=== PATIENT | female | born 1955 | race Caucasian/White ===

== ENCOUNTER → 2016-09-27 | Outpatient (CLI) | payer BC ==
--- NOTE | 2016-09-27 10:53 | KCIC ---
Complete lumbar spine INDICATION: Chronic low back pain COMPARISON: None FINDINGS: No compression fracture or malalignment. There is mild degenerative disc height loss at all levels. SI joints are open and corticated. IMPRESSION: Mild degenerative disc height loss at all levels with no compression fracture or malalignment. Electronically signed by: Gary Lozano MD (09/27/2016 10:50 AM)
--- NOTE | 2016-09-27 10:55 | KCIC ---
Two views right hip Indication: Low back pain with bilateral hip and knee pain Findings: There is no fracture or dislocation. The right hip joint is well-maintained. Visualized portions of the pelvis are unremarkable. No soft tissue abnormalities identified. Impression: Unremarkable exam of the right hip. Electronically signed by: Gary Lozano MD (09/27/2016 10:52 AM)
--- NOTE | 2016-09-27 11:06 | KCIC ---
Two views left hip Indication: Left hip pain Findings: There is no fracture or dislocation. The left hip joint is well-maintained. Visualized portions of the pelvis are unremarkable. No soft tissue abnormalities identified. Impression: Unremarkable exam of the left hip. Electronically signed by: Gary Lozano MD (09/27/2016 11:03 AM)
--- NOTE | 2016-09-27 11:09 | KCIC ---
3V bilateral knee dated 09/27/2016. No comparison available. CLINICAL INDICATION: Chronic knee pain. FINDINGS: 3 views bilateral knees show normal bony alignment. [id number] tricompartmental hypertrophic change on the right with chondrocalcinosis. Minimal degenerative changes on the left without significant chondrocalcinosis. No apparent joint effusion or loose body. No fracture or periostitis. IMPRESSION: 1. Mild to moderate tricompartmental primary degenerative arthrosis and chondrocalcinosis on the right. 2. Minimal degenerative changes on the left. Electronically signed by: Robbie Cadena MD (09/27/2016 11:06 AM)
== END | disposition home or self-care (01) ==
LOC: KCIC 09:53
PROVIDERS: ATTEND Family Medicine
DX: M17.12 Unilateral primary osteoarthritis, left knee (principal); M17.11 Unilateral primary osteoarthritis, right knee; M11.261 Other chondrocalcinosis, right knee; G89.29 Other chronic pain; M54.5 Low back pain; M25.551 Pain in right hip; M25.552 Pain in left hip
CPT/HCPCS: 72110; 73502; 73562

== ENCOUNTER 2017-02-13 08:55 | Emergency (ER) | payer BC ==
[~2017-02-13] VITALS: Ht 182.9 cm; Wt 77.1 kg
[2017-02-13 09:00] VITALS: BP 116/66
--- NOTE | 2017-02-13 09:34 | RAD ---
Indication fall one week ago. Persistent pain. AP and lateral views of the sacrum and coccyx were obtained. On 1 of the lateral views there is a suggested nondisplaced, subtle, fracture involving the sacrum. The finding is not certain. If additional evaluation is warranted CT or MRI could be performed. IMPRESSION: Suspect subtle nondisplaced sacral fracture
[2017-02-13] MEDS ORDERED: HYDR-971 PO (10:06)
--- NOTE | 2017-02-13 10:06 | PHYS DOC ---
Past Medical History Past Medical History: Hypertension Alcohol Use: None Drug Use: None Adult General Chief Complaint Chief Complaint: OTHER COMPLAINTS [facility] HPI Patient is a 61 year old female presents to the emergency department with a history of opening the cabinet door when a rat jumped out of the cabinet. Patient states she moved back and fell on her buttock. She states this occurred last Friday. She has been taking Tylenol #3 and Tylenol #4 without relief. She denies loss of bowel or bladder. She has had no difficulty of having bowel movements. She denies numbness or tingling to the lower extremities. Review of Systems Review of Systems Constitutional: Denies fever or chills [] Eyes: Denies change in visual acuity, redness, or eye pain [] HENT: Denies nasal congestion or sore throat [] Respiratory: Denies cough or shortness of breath [] Cardiovascular: No additional information not addressed in HPI [] GI: Denies abdominal pain, nausea, vomiting, bloody stools or diarrhea [] : Denies dysuria or hematuria [] Musculoskeletal: C/o sacral pain Integument: Denies rash or skin lesions [] Neurologic: Denies headache, focal weakness or sensory changes [] Endocrine: Denies polyuria or polydipsia [] Allergies Allergies Allergies Coded Allergies Type Severity Reaction Last Updated Verified Sulfa (Sulfonamide Antibiotics) Allergy Intermediate swelling hives 02/13/17 Yes Physical Exam Physical Exam Constitutional: Well developed, well nourished, no acute distress, non-toxic appearance. [] HENT: Normocephalic, atraumatic, bilateral external ears normal, oropharynx moist, no oral exudates, nose normal. [] Eyes: PERRLA, EOMI, conjunctiva normal, no discharge. [] Neck: Normal range of motion, no tenderness, supple, no stridor. [] Cardiovascular:Heart rate regular rhythm, no murmur [] Lungs & Thorax: Bilateral breath sounds clear to auscultation [] Abdomen: Bowel sounds normal, soft, no tenderness, no masses, no pulsatile masses. [] Skin: Warm, dry, no erythema, no rash. [] Back: No lumbar tenderness no step-offs, no crepitus, no deformities, no CVA tenderness. Patient with tenderness noted to the sacral and inner upper thigh area. No hip or pelvis tenderness noted. Extremities: No tenderness, no cyanosis, no clubbing, ROM intact, no edema. [] Neurologic: Alert and oriented X 3, normal motor function, normal sensory function, no focal deficits noted. [] Psychologic: Affect normal, judgement normal, mood normal. [] Current Patient Data Vital Signs Vital Signs Date Time Temp Pulse Resp B/P (MAP) Pulse Ox O2 Delivery O2 Flow Rate FiO2 02/13/17 09:00 97.8 58 16 116/66 (83) 96 Room Air 97.8 EKG EKG [] Radiology/Procedures Radiology/Procedures [][facility] [address] [place] [address] IMAGING REPORT Signed PATIENT: PANKAJ HARGROVE ACCOUNT: [id number] : 1955 LOCATION: ER AGE: 61 SEX: F EXAM STATUS: REG ER ORD. PHYSICIAN: ANNE KAPLAN APRN REASON: fall and increase pain in the tailbone PROCEDURE: SACRUM & COCCYX 3V Indication fall one week ago. Persistent pain. AP and lateral views of the sacrum and coccyx were obtained. On 1 of the lateral views there is a suggested nondisplaced, subtle, fracture involving the sacrum. The finding is not certain. If additional evaluation is warranted CT or MRI could be performed. IMPRESSION: Suspect subtle nondisplaced sacral fracture DICTATED and SIGNED BY: NESTOR LANDIN MD DATE: 02/13/1729 CC: ANNE KAPLAN APRN; TERRANCE FERRARO W; NON,STAFF ~ Course & Med Decision Making Course & Med Decision Making Pertinent Labs and Imaging studies reviewed. (See chart for details) X-rays positive for suspect subtle nondisplaced sacral fracture per radiology. Patient will be provided with [place] for pain in which she was instructed will cause drowsiness do not take if you need to be alert an oriented. Patient was recommended to Ibuprofen to help with pain and inflammation. Patient will be recommended to use ice packs on 20 minutes and of 20 minutes several times a day. Patient was also recommended to use a donut to help alleviate pain when sitting. Recommended followup with your primary care provider in 5-7 days. Signs and symptoms to return to the emergency department has been provided. All questions and concerns have been answered at patients bedside. Patient agrees with discharge instructions, treatment regimen and followup recommendations. [] Dragon Disclaimer Dragon Disclaimer This electronic medical record was generated, in whole or in part, using a voice recognition dictation system. Departure Departure Impression: Primary Impression: Sacral fracture, closed Disposition: HOME, SELF-CARE Condition: STABLE Referrals: TERRANCE FERRARO (PCP) Patient Instructions: Tailbone Injury, [id number] Additional Instructions: Activity as tolerated Ice packs on 20 minutes and off 20 minutes several times a day Bethpage for severe pain and discomfort. This medication will cause drowsiness do not take if you need to be alert and oriented Do NOT take any Tylenol #3 or Tylenol #4 with the norco Followup with primary care provider in 5-7 days Return to emergency department as needed for signs and symptoms that become worse. Scripts Hydrocodone/Apap 5-325 (NORCO 5-325 TABLET) 1 Each Tablet 1 TAB PO PRN Q6HRS Y for PAIN, #20 TAB 0 Refills Prov: ANNE KAPLAN APRN 02/13/17 Problem Qualifiers Primary Impression: Sacral fracture, closed Encounter type: initial encounter Fracture alignment: nondisplaced ANNE KAPLAN APRN Feb 13, 2017 10:06
== END 2017-02-13 10:12 | disposition home or self-care (01) ==
LOC: ER 08:55
DX: S32.10XA Unspecified fracture of sacrum, initial encounter for closed fracture (principal); I10 Essential (primary) hypertension; Z88.2 Allergy status to sulfonamides; W18.39XA Other fall on same level, initial encounter; Y93.89 Activity, other specified; Y99.8 Other external cause status; Y92.89 Other specified places as the place of occurrence of the external cause
CPT/HCPCS: 72220; 99284

== ENCOUNTER 2017-07-23 10:19 | Emergency (ER) | payer BC | END 2017-07-23 12:10 | disposition home or self-care (01) | LOC: ER 10:19 | DX: S80.01XA Contusion of right knee, initial encounter (principal); M17.11 Unilateral primary osteoarthritis, right knee; I10 Essential (primary) hypertension; Z86.73 Personal history of transient ischemic attack (TIA), and cerebral infarction without residual deficits; Z88.2 Allergy status to sulfonamides; W18.39XA Other fall on same level, initial encounter; Y93.89 Activity, other specified; Y99.8 Other external cause status; Y92.89 Other specified places as the place of occurrence of the external cause | CPT/HCPCS: 73564; 73590; 73630; 99284 ==

== ENCOUNTER → 2018-03-02 | Outpatient (CLI) | payer BC ==
[2017-07-23 10:40] VITALS: BP 129/66
[~2018-03-02] MED LIST: ACET-704 PO; ALPR0.5T6 PO; BUDE10.2 IH; CARV25TA2 PO; ESCITALOPRAM OX10 MG PO; HYDR-2766 PO; HYDR-971 PO; IRBE300T3 PO; MECL25TA3 PO; METF750T2 PO; NAPR220T70 PO; OXYC-327 PO; PANT20TA2 PO; PIOG30TA41 PO; POTA500T5 PO; PROAIR HFA8.5 GM INH; SIMV40TA3 PO; VERA240C2 PO
[2018-03-02 09:37] LABS: BASO % 1 % (0-3); EOS # 0.1 x10^3/uL (0.0-0.7); EOS % 3 % (0-3); HEMATOCRIT 38.7 % (36.0-47.0); HEMOGLOBIN 12.8 g/dL (12.0-15.5); LYMPH # 1.2 x10^3/uL (1.0-4.8); LYMPH % 25 % (24-48); MEAN CORPUSCULAR HEMOGLOBIN 28 pg (25-35); MEAN CORPUSCULAR HGB CONC 33 g/dL (31-37); MEAN CORPUSCULAR VOLUME 85 fL (79-100); MONO # 0.4 x10^3/uL (0.0-1.1); MONO % 7 % (0-9); NEUT # 3.3 x10^3uL (1.8-7.7); NEUT % 65 % (31-73); PLATELET COUNT 376 x10^3/uL (140-400); RED BLOOD COUNT 4.58 x10^6/uL (3.50-5.40); RED CELL DISTRIBUTION WIDTH 14.7 % (11.5-14.5)
[2018-03-02 09:51] LABS: CALCIUM 9.6 mg/dL (8.5-10.1); GFR 67.8; POTASSIUM 4.1 mmol/L (3.5-5.1)
[2018-03-02 10:15] LABS: PROTHROMBIN TIME PATIENT 13.2 SEC (11.7-14.0)
[2018-03-02 12:12] LABS: BILIRUBIN,URINE NEGATIVE (NEG); CLARITY,URINE CLEAR; COLOR,URINE YELLOW; NITRITE,URINE NEGATIVE (NEG); PROTEIN,URINE NEGATIVE (NEG-TRACE)
[2018-03-02 12:13] LABS: BACTERIA,URINE FEW /HPF (0-FEW); RBC,URINE 0 /HPF (0-2); SQUAMOUS EPITHELIAL CELL,UR FEW /LPF
--- NOTE | 2018-03-02 12:29 | EKG ---
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
--- NOTE | 2018-03-02 13:14 | RAD ---
AP and Lateral Views of the Chest 03/02/2018 12:50 PM Indication: PRE OP FOR RIGHT TOTAL KNEE REPLACEMENT ON 03/10/18 Comparison: None Findings: There is no focal consolidation or infiltrate identified. The cardiomediastinal silhouette is within normal limits. There is no evidence of pneumothorax or pleural effusion. No acute osseous abnormalities are identified. Impression: No evidence of acute cardiopulmonary process. Electronically signed by: Josias Ignacio MD (03/02/2018 1:10 PM) [id number]
[2018-03-02 22:13] LABS: HEMOGLOBIN A1C 5.4 % (4.8-5.6)
== END | disposition home or self-care (01) ==
LOC: SURGPAT 12:50
PROVIDERS: ATTEND Orthopaedic Surgery
DX: Z01.818 Encounter for other preprocedural examination (principal); M17.11 Unilateral primary osteoarthritis, right knee; I10 Essential (primary) hypertension
CPT/HCPCS: 36415; 71046; 80048; 81001; 82040; 83036; 85025; 85610; 85651; 85730; 87086; 87641; 93005

== ENCOUNTER 2018-03-10 10:22 | Inpatient (IN) | payer BC ==
[~2018-03-10] VITALS: Ht 182.9 cm; Wt 78.9 kg
[~2018-03-10 10:22] MED LIST changes: +HYDROcodone/APAP 7.5/325MG 1 TAB TABLET PO PRN; +HYDROmorphone 2 MG/ML VIAL IV PRN; +IV RINGERS,LACTATED 1000ML 1,000 ML IV SCH; +LIDOCAINE 1% PF 2 ML VIAL. ID PRN; +MELOXICAM 7.5 MG TABLET PO PRN; +ONDANSETRON PF 4 MG/2 ML VIAL. IV PRN; -OXYC-327 PO; +PROCHLORPERAZINE 10 MG/2 ML VIAL. IV PRN; +fentaNYL PF VIAL 100 MCG/2 ML VIAL IV PRN
[2018-03-10 12:57] LABS: PROTHROMBIN TIME PATIENT 13.7 SEC (11.7-14.0)
[2018-03-10] MEDS ORDERED: DEXAMETHASONE SOD PHOS 20 MG/5 ML VIAL. ONE (14:26)
[2018-03-10] MEDS ORDERED: ONDANSETRON PF 4 MG/2 ML VIAL. ONE (14:26)
[2018-03-10] MEDS ORDERED: LIDOCAINE 1% PF 5 ML VIAL. ONE (14:26)
[2018-03-10] MEDS ORDERED: ROCURONIUM 50 MG/5 ML VIAL. ONE (14:26)
[2018-03-10] MEDS ORDERED: fentaNYL PF VIAL 100 MCG/2 ML VIAL ONE ×4 (14:26→19:32)
[2018-03-10] MEDS ORDERED: FAMOTIDINE 20 MG/2 ML VIAL ONE (14:26)
[2018-03-10] MEDS ORDERED: MIDAZOLAM HCL/PF 2 MG/2 ML VIAL. ONE (14:26)
[2018-03-10] MEDS ORDERED: PROPOFOL 20 ML IV ONE (14:26)
[2018-03-10] MEDS ORDERED: LIDOCAINE 1% PF 30 ML VIAL. ONE (15:10)
[2018-03-10] MEDS: MORPHINE SULFATE 5 MG, KETOROLAC 30MG VIAL 30 MG, ROPIVacaine 0.5% PF 60 ML, EPINEPHrin... INT ART ONE ×10 (16:10→17:21)
[2018-03-10] MEDS ORDERED: LABETALOL 20 MG/4 ML DISP.SYRIN. IVP ONE (16:35)
--- NOTE | 2018-03-10 16:56 | HP ---
ADMIT DATE: 03/10/2018 CHIEF COMPLAINT: 1. Right knee pain with DJD. 2. Triggering of left ring finger and a painful knot at the base of the long finger. HISTORY OF PRESENT ILLNESS: The patient only got about 2 weeks of good relief from a corticosteroid injection following no good results from previous hyaluronic acid shots, activity modification and other nonoperative treatment for right knee degenerative joint disease. She is very limited in her ongoing pain and activities of daily living, has pain with grasp due to the triggering finger in the lump in her left hand as well. PAST MEDICAL HISTORY: Significant for hypertension, hypercholesterolemia, diabetes mellitus, sarcoidosis and a keloid with healing scars. PAST SURGICAL HISTORY: Cerebral aneurysm repair. FAMILY HISTORY: Denies any family history. SOCIAL HISTORY: Denies smoking, alcohol or drug use. MEDICATIONS: List is reviewed. ALLERGIES: SHE HAS ALLERGIES ONLY TO SULFA. REVIEW OF SYSTEMS: Significant only for the right knee and left hand issues noted above. No chest pain, shortness of breath, recent fever, chills or other medical concerns. PHYSICAL EXAMINATION: VITAL SIGNS: Per admission sheet. HEENT: Atraumatic, normocephalic. HEART: Regular rate and rhythm. LUNGS: Clear to auscultation bilaterally. ABDOMEN: Benign. EXTREMITIES: Examination of the right knee reveals slight varus and crepitus without any gross instability, joint line pain noted. Normal examination of the contralateral knee, bilateral hips and ankles. Examination of the left hand reveals the left ring trigger finger as well as a small lump palpable in the area of the flexor tendon sheath on the left long finger as well. IMPRESSION: Osteoarthritis, right knee along with right knee pain, left hand pain and left ring trigger finger and ganglion long finger. TREATMENT PLAN: I had gone over with her, possibility of ongoing nonoperative management, which has been unsuccessful of her knee. She wishes to proceed with surgical evaluation and treatment. We had talked about total knee arthroplasty and the risks of that procedure including the possibility of infection, continued pain, premature wear or loosening, nerve or blood vessel damage, medical or other anesthetic complications among others and the recovery process. Also talked about the possible treatments of her hand. She wishes to proceed with a trigger finger release on the left ring finger and removal of the ganglion cyst with exploration, which can be done at the same setting [facility] admission to follow up. KUSHAL BONILLA MD DR: NKECHI/west JOB#: [id number] / [id number]
[2018-03-10] MEDS ORDERED: GLYCOPYRROLATE 1 MG/5 ML VIAL. ONE (17:48)
[2018-03-10] MEDS ORDERED: NEOSTIGMINE METHYLSULFATE 5 MG/5 ML SYRINGE. ONE (17:48)
[2018-03-10] MEDS: fentaNYL PF VIAL 100 MCG/2 ML VIAL IV PRN ×4 (18:35→20:25)
[2018-03-10] MEDS ORDERED: MORPHINE SULFATE 2 MG/ML VIAL. ONE (19:05)
[2018-03-10] MEDS: MORPHINE SULFATE 2 MG/ML VIAL. IV PRN ×2 (19:09→19:19)
[2018-03-10] MEDS ORDERED: MORPHINE SULFATE 10 MG/ML VIAL. IV PRN (19:45)
[2018-03-10] MEDS ORDERED: HYDROcodone/APAP 10/325 1 TAB TABLET PO PRN (19:45)
[2018-03-10] MEDS ORDERED: MORPHINE SULFATE 2 MG/ML VIAL. IV PRN (19:45)
[2018-03-10] MEDS ORDERED: ZOLPIDEM 5 MG TABLET. PO PRN (19:45)
[2018-03-10] MEDS ORDERED: MORPHINE SULFATE 4 MG/ML VIAL. IV PRN ×2 (19:45)
[2018-03-10] MEDS ORDERED: oxyCODONE/APAP 5/325 1 TAB TABLET PO PRN (19:45)
[2018-03-10] MEDS ORDERED: ACETAMINOPHEN 325 MG TABLET. PO PRN (19:45)
[2018-03-10] MEDS ORDERED: traMADol 50 MG TABLET PO PRN ×2 (19:45)
[2018-03-10] MEDS ORDERED: CALCIUM CARBONATE 500 MG TAB.CHEW PO PRN (19:45)
[2018-03-10] MEDS ORDERED: 0.9 % SODIUM CHLORIDE 10 ML DISP.SYRIN. IV PRN (19:45)
[2018-03-10] MEDS ORDERED: fentaNYL PF VIAL 100 MCG/2 ML VIAL IV PRN ×2 (19:45)
[2018-03-10] MEDS ORDERED: DEXTROSE 50% 25 GM / 50ML DISP.SYRIN. IV PRN ×2 (19:45→21:45)
[2018-03-10] MEDS ORDERED: ALPRAZolam 0.5 MG TABLET PO PRN (20:00)
[2018-03-10] MEDS ORDERED: diphenhydrAMINE 50 MG/ML VIAL ONE (20:22)
--- NOTE | 2018-03-10 20:27 | RAD ---
EXAM: Right knee, 2 views. HISTORY: Arthroplasty. COMPARISON: None. FINDINGS: 2 views of the right knee are obtained. There is a right knee arthroplasty in expected position. There is soft tissue gas, joint fluid and a surgical drain due to recent surgery. There is a 9 mm x 2 mm density along the medial joint line which is likely due to postoperative material or dense cortical fragment. IMPRESSION: Right knee arthroplasty in expected position, with surrounding soft tissue changes due to recent surgery. Electronically signed by: Anu Brewer MD (03/10/2018 8:24 PM) [facility]
[2018-03-10 20:30] VITALS: BP 145/96
[2018-03-10] MEDS ORDERED: ALBUTEROL SULFATE 2.5 MG/3 ML NEBU. NEB PRN (20:30)
[2018-03-10] MEDS: IV DEXTROSE 5 %-0.45 % NACL 1,000 ML IV SCH (20:54)
[2018-03-10 21:00] VITALS: BP 147/82
[2018-03-10] MEDS ORDERED: diphenhydrAMINE 50 MG/ML VIAL IV PRN ×2 (21:15→21:45)
[2018-03-10] MEDS ORDERED: diphenhydrAMINE 50 MG/ML VIAL IM ONE (21:15)
[2018-03-10 21:30] VITALS: BP 133/79
[2018-03-10] MEDS ORDERED: NALBUPHINE 10 MG/ML AMPUL. IV PRN (21:45)
[2018-03-10] MEDS ORDERED: hydrOXYzine 10 MG TABLET PO PRN (21:45)
[2018-03-10] MEDS: VERAPAMIL SR 120 MG TABLET.ER. PO SCH (21:47)
[2018-03-10] MEDS: SIMVASTATIN 40 MG TABLET. PO SCH (21:48)
[2018-03-10] MEDS: CITALOPRAM 20 MG TABLET. PO SCH (21:48)
[2018-03-10] MEDS: ceFAZolin SODIUM 1 GM in IV DEXTROSE 5% 50 ML IV SCH (21:49)
[2018-03-10 22:00] VITALS: BP 110/70
[2018-03-10] MEDS ORDERED: WARFARIN 7.5 MG TABLET. PO ONE (22:00)
[2018-03-10 23:00] VITALS: BP 113/71
--- NOTE | 2018-03-10 23:01 | PDOC4 ---
Operative Note Operative Note Date of surgery: 03/10/2018 Preoperative diagnosis: Degenerative joint disease right knee, left ring trigger finger and left long finger ganglion of flexor tendon sheath Postoperative diagnosis: Same Operative procedure: Right total knee arthroplasty, left ring trigger finger release, excision ganglion of flexor tendon sheath left long finger Surgeon: Fatuma Assist: Zari Anesthesia: Gen. Estimated blood loss: 200 mL Complications: None Specimens: Articular surface and ganglion cyst to pathology Operative indications: Hellen is a 62-year-old female with ongoing more severe right knee pain unresponsive to nonoperative treatment and she had had a symptomatic locking left ring trigger finger and a bump over the left long finger flexor tendon sheath it is painful with grasp. She wishes to proceed with definitive treatment for all of these issues. I had covered with her the possibility of infection nerve or blood vessel damage medical or other anesthetic complications including specific to the knee possibility of premature wear or loosening continued pain among others all her questions were answered she wishes to proceed with surgical evaluation and treatment Operative text: Patient was identified procedure verified patient placed in the supine position on the operating table. After adequate amounts of general anesthesia were administered the right lower extremity was prepped and draped in standard sterile fashion and after timeout was performed patient procedure identified and verified a midline incision was made with a medial parapatellar approach patella was everted fat pad was excised and the femur was drilled for the intramedullary cutting guide standard distal cut was made femur was sized at a size 5 and AP lateral chamfer cuts were made. Menisci were excised ACL was excised PCL was spared and tibial cut was made in flexion extension gaps were balanced. A size 3 tibia was selected drilled and broached a size 5 femoral component initially cruciate retaining however the PCL was noted to be insufficient and a posterior stabilized complement was prepared by reaming the notch and excising the PCL. Full range of motion with excellent ligament balance patella was then prepared with a 29 mm resurfacing patella medialized lateral bone was removed to avoid any impingement. Excellent tracking was noted trial components were removed thorough irrigation carried out normal saline solution bleeding and the capsule was controlled with the aqua Mantis device and any synovitis was likewise coagulated with the aqua mantis. The following [employer] Nephew components were cemented in place with polymethylmethacrylate cement a size 3 right journey tibial baseplate a size 5 right bicruciate stabilized journey to Oxinium femoral component and a resurfacing 29 mm all polyethylene patella. And articular insert was placed with the knee in extension after excess cement was removed until cement was dry thorough irrigation again carried out normal saline solution and a 9 mm articular insert was locked into place. Again excellent ligament balance in flexion extension with full range of motion excellent stability patellofemoral tracking was noted retinacular closure accomplished after placement of a Hemovac drain and pain catheter. Pain catheter mixture was injected throughout the joint capsule retinacular closure accomplished with #2 Ethibond suture and a #1 strata fix PDS suture. Subcutaneous closure with buried Vicryl sutures skin closure with 30 strata fix Monocryl a rocío dressing was applied. Attention was then turned to the left hand which was prepped and draped in standard sterile fashion with an arm tourniquet on the upper arm after additional timeout was performed for this procedure was patient procedure again identified and verified and incision was made across the distal palmar crease and the A1 prashanth was divided on the ring finger flexor tendon sheath. Incision was extended to allow exposure of the ganglion cyst on the long finger flexor tendon sheath. Ganglion was decompressed and the surrounding retinaculum removed and sent for pathological evaluation. Neurovascular bundles were carefully protected during this process irrigation again carried out normal saline solution and closure accomplished with nylon suture in a vertical mattress fashion. Sterile dressings were then applied fingers were noted be warm pink find deflation of the tourniquet patient was returned to recovery room in stable condition having tolerated procedure well KUSHAL BONILLA MD Mar 10, 2018 23:01
[2018-03-11] VITALS: BP 103/65
[2018-03-11] MEDS: KETOROLAC TROMETHAMINE 10 MG TABLET PO SCH ×6 (00:03→21:38)
[2018-03-11] MEDS: KETOROLAC INT ART SCH ×2 (00:44→12:02)
[2018-03-11] MEDS: [UNRECOGNIZED DRUG - OTHER] INT ART SCH ×2 (00:44→12:02)
[2018-03-11] MEDS: BUPIVACAINE MPF 0.25% INT ART SCH ×2 (00:44→12:02)
[2018-03-11] MEDS: EPINEPHRINE INT ART SCH ×2 (00:44→12:02)
[2018-03-11 02:58] VITALS: BP 125/72
[2018-03-11] MEDS: ceFAZolin SODIUM 1 GM in IV DEXTROSE 5% 50 ML IV SCH ×2 (04:05→08:49)
[2018-03-11] MEDS: HYDROcodone/APAP 7.5/325MG 1 TAB TABLET PO PRN ×4 (04:11→23:28)
[2018-03-11 04:46] LABS: PROTHROMBIN TIME PATIENT 15.9 SEC (11.7-14.0)
[2018-03-11] MEDS ORDERED: MAGNESIUM HYDROXIDE 2,400 MG/30 ML ORAL.SUSP. PO PRN (06:00)
[2018-03-11 06:03] VITALS: BP 107/64
[2018-03-11] MEDS: IV DEXTROSE 5 %-0.45 % NACL 1,000 ML IV SCH ×3 (07:00→20:12)
--- NOTE | 2018-03-11 07:22 | PDOC ---
JANMATTIE Yuri TELEMETRY RN 03/11/18 0722: ORTHO PROGRESS NOTES Subjective Patient states doing well with minimal complaint of pain this morning. Post-op Day: 1 Procedure Right total knee arthroplasty Left long finger ganglion cyst removal Left ring finger trigger finger release. Vitals Vital Signs Date Time Temp Pulse Resp B/P (MAP) Pulse Ox O2 Delivery O2 Flow Rate FiO2 03/11/18 06:03 98.9 93 16 107/64 (78) 96 Nasal Cannula 1.0 98.9 Labs Laboratory Tests Test 03/10/18 11:12 03/10/18 11:54 03/10/18 18:49 03/10/18 20:42 Prothrombin Time 13.7 SEC (11.7-14.0) Prothromb Time International Ratio 1.1 (0.8-1.1) Activated Partial Thromboplast Time 32 SEC (24-38) Glucose (Fingerstick) 82 mg/dL (70-99) 89 mg/dL (70-99) 111 mg/dL (70-99) Test 03/11/18 03:50 03/11/18 06:38 Prothrombin Time 15.9 SEC (11.7-14.0) Prothromb Time International Ratio 1.3 (0.8-1.1) Glucose (Fingerstick) 133 mg/dL (70-99) Laboratory Tests Test 03/10/18 11:12 03/10/18 11:54 03/10/18 18:49 03/10/18 20:42 Prothrombin Time 13.7 SEC (11.7-14.0) Prothromb Time International Ratio 1.1 (0.8-1.1) Activated Partial Thromboplast Time 32 SEC (24-38) Glucose (Fingerstick) 82 mg/dL (70-99) 89 mg/dL (70-99) 111 mg/dL (70-99) Test 03/11/18 03:50 03/11/18 06:38 Prothrombin Time 15.9 SEC (11.7-14.0) Prothromb Time International Ratio 1.3 (0.8-1.1) Glucose (Fingerstick) 133 mg/dL (70-99) Notes Patient with history of chronic diarrhea and has c-diff. Assessment and Plan N/V intact distally and left hand fingers dressings dry and intact moving extremities on request recommend moving patient to private area r/t c-diff. ARLEEN GAYTAN II, MD 03/12/18 0837: ORTHO PROGRESS NOTES Assessment and Plan Dr. Burris's patient, my name was signed to this mistakenly MATTIE MONTOYA APRN Mar 11, 2018 07:22 ARLEEN GAYTAN II, MD Mar 12, 2018 08:37
[2018-03-11] MEDS: CARVEDILOL 12.5 MG TABLET. PO SCH ×2 (08:00→16:43)
[2018-03-11] MEDS: ALBUTEROL SULFATE 2.5 MG/3 ML NEBU. NEB SCH ×4 (08:17→20:04)
[2018-03-11] MEDS: BUDESONIDE 0.5 MG/2 ML NEBU. NEB SCH ×2 (08:17→20:04)
[2018-03-11] MEDS: PIOGLITAZONE 15 MG TABLET. PO SCH (08:47)
[2018-03-11] MEDS: FERROUS SULFATE 325 MG TABLET. PO SCH ×2 (08:48→16:34)
[2018-03-11] MEDS: MULTIVITAMIN with MINERAL TABLET. PO SCH (08:48)
[2018-03-11] MEDS: POTASSIUM CHLORIDE 10 MEQ TABLET.ER. PO SCH (08:48)
[2018-03-11] MEDS: LOSARTAN POTASSIUM 50 MG TABLET. PO SCH (09:00)
[2018-03-11] MEDS: SENNOSIDES/DOCUSATE 8.6/50MG TABLET. PO SCH (09:00)
[2018-03-11 10:41] LABS: HEMOGLOBIN 9.6 g/dL (12.0-15.5)
[2018-03-11 11:30] VITALS: BP 130/70
[2018-03-11] MEDS: metFORMIN 500 MG TABLET PO SCH ×2 (12:00→16:32)
[2018-03-11] MEDS: oxyCODONE/APAP 7.5/325 1 TAB TABLET PO PRN ×2 (12:57→16:31)
[2018-03-11] MEDS ORDERED: BISACODYL 10 MG SUPP.RECT. PR PRN (16:00)
[2018-03-11] MEDS ORDERED: WARFARIN 5 MG TABLET. PO ONE (16:00)
[2018-03-11] MEDS: PANTOPRAZOLE 40 MG TABLET.DR. PO SCH (16:33)
--- NOTE | 2018-03-11 17:00 | PDOC ---
PROGRESS NOTES Subjective Subjective Problems overnight: Lencho his knee is doing reasonably well sore as expected. In contrast to what she told me preoperatively that she was nervous and just had some diarrhea as an isolated episode, she has actually had some diarrhea on an ongoing basis perhaps 3-4 times a week prior to her admission. Objective Vital Signs Vital Signs Date Time Temp Pulse Resp B/P (MAP) Pulse Ox O2 Delivery O2 Flow Rate FiO2 03/11/18 16:43 84 113/53 03/11/18 16:31 Room Air 03/11/18 11:30 98.3 18 96 98.3 03/11/18 06:03 1.0 Physical Exam On exam her incision he go drain are clean dry intact good early range of motion distal Jessica status intact Labs Laboratory Tests Test 03/10/18 11:12 03/10/18 11:54 03/10/18 18:49 03/10/18 20:42 Prothrombin Time 13.7 SEC (11.7-14.0) Prothromb Time International Ratio 1.1 (0.8-1.1) Activated Partial Thromboplast Time 32 SEC (24-38) Glucose (Fingerstick) 82 mg/dL (70-99) 89 mg/dL (70-99) 111 mg/dL (70-99) Test 03/11/18 03:50 03/11/18 06:38 03/11/18 11:25 03/11/18 16:26 Hemoglobin 9.6 g/dL (12.0-15.5) Hematocrit 29.0 % (36.0-47.0) Mean Corpuscular Hemoglobin Concent 33 g/dL (31-37) Prothrombin Time 15.9 SEC (11.7-14.0) Prothromb Time International Ratio 1.3 (0.8-1.1) Glucose (Fingerstick) 133 mg/dL (70-99) 121 mg/dL (70-99) 130 mg/dL (70-99) Laboratory Tests Test 03/10/18 18:49 03/10/18 20:42 03/11/18 03:50 03/11/18 06:38 Glucose (Fingerstick) 89 mg/dL (70-99) 111 mg/dL (70-99) 133 mg/dL (70-99) Hemoglobin 9.6 g/dL (12.0-15.5) Hematocrit 29.0 % (36.0-47.0) Mean Corpuscular Hemoglobin Concent 33 g/dL (31-37) Prothrombin Time 15.9 SEC (11.7-14.0) Prothromb Time International Ratio 1.3 (0.8-1.1) Test 03/11/18 11:25 03/11/18 16:26 Glucose (Fingerstick) 121 mg/dL (70-99) 130 mg/dL (70-99) Imaging Postop x-rays show excellent alignment and sizing of total knee arthroplasty on the right Assessment Assessment POD# [1], S/P [right total knee arthroplasty] Plan Plan of Care We are currently awaiting a stool sample. Although the persistent diarrhea could be a concern for Clostridium difficile this would be unusual in a setting where she has had no antibiotics and really no hospital exposure. Probably overall less than a 3% chance in terms of an actual cause of her diarrhea. She remains isolation in the interim. Another possibility of cause would be may be inflammatory bowel syndrome where she has alternating issues without any infectious etiology Continue Coumadin anticoagulation weightbearing as tolerated otherwise standard total knee protocol, limit hard grasp on left hand due to trigger finger release and ganglion excision KUSHAL BONILLA MD Mar 11, 2018 16:59
[2018-03-11] MEDS: diphenhydrAMINE HCL 25 MG CAPSULE PO PRN (18:05)
[2018-03-11 18:22] VITALS: BP 113/53
[2018-03-11] MEDS: VERAPAMIL SR 120 MG TABLET.ER. PO SCH (20:23)
[2018-03-11] MEDS: CITALOPRAM 20 MG TABLET. PO SCH (20:24)
[2018-03-11] MEDS: SIMVASTATIN 40 MG TABLET. PO SCH (20:24)
[2018-03-12] MEDS: diphenhydrAMINE HCL 25 MG CAPSULE PO PRN ×3 (02:25→19:41)
[2018-03-12 04:44] LABS: HEMATOCRIT 24.3 % (36.0-47.0); HEMOGLOBIN 8.3 g/dL (12.0-15.5)
[2018-03-12] MEDS: HYDROcodone/APAP 7.5/325MG 1 TAB TABLET PO PRN (04:50)
[2018-03-12 04:51] LABS: PROTHROMBIN TIME PATIENT 21.6 SEC (11.7-14.0)
[2018-03-12 06:02] VITALS: BP 123/68
[2018-03-12] MEDS: BUDESONIDE 0.5 MG/2 ML NEBU. NEB SCH ×2 (07:17→20:00)
[2018-03-12] MEDS: ALBUTEROL SULFATE 2.5 MG/3 ML NEBU. NEB SCH ×4 (07:19→20:00)
[2018-03-12] MEDS: LOSARTAN POTASSIUM 50 MG TABLET. PO SCH (08:40)
[2018-03-12] MEDS: POTASSIUM CHLORIDE 10 MEQ TABLET.ER. PO SCH (08:41)
[2018-03-12] MEDS: SENNOSIDES/DOCUSATE 8.6/50MG TABLET. PO SCH (08:41)
[2018-03-12] MEDS: PIOGLITAZONE 15 MG TABLET. PO SCH (08:41)
[2018-03-12] MEDS: CARVEDILOL 12.5 MG TABLET. PO SCH ×2 (08:41→17:00)
[2018-03-12] MEDS: FERROUS SULFATE 325 MG TABLET. PO SCH ×2 (08:41→16:31)
[2018-03-12] MEDS: MULTIVITAMIN with MINERAL TABLET. PO SCH (08:41)
[2018-03-12] MEDS: oxyCODONE/APAP 7.5/325 1 TAB TABLET PO PRN ×4 (08:42→21:54)
[2018-03-12] MEDS: metFORMIN 500 MG TABLET PO SCH ×2 (11:30→16:30)
[2018-03-12] MEDS: KETOROLAC TROMETHAMINE 10 MG TABLET PO SCH ×2 (12:00→16:31)
[2018-03-12] MEDS: IV DEXTROSE 5 %-0.45 % NACL 1,000 ML IV SCH ×2 (13:00→23:00)
--- NOTE | 2018-03-12 14:28 | PDOC ---
PROGRESS NOTES Subjective Subjective Problems overnight:Vomited today, knee sore Objective Vital Signs Vital Signs Date Time Temp Pulse Resp B/P (MAP) Pulse Ox O2 Delivery O2 Flow Rate FiO2 03/12/18 12:32 Room Air 03/12/18 11:57 93 03/12/18 08:41 75 124/69 03/12/18 06:02 98.3 20 98.3 03/11/18 06:03 1.0 Physical Exam rocío removed, slight bloody drainage distal wound Labs Laboratory Tests Test 03/10/18 18:49 03/10/18 20:42 03/11/18 03:50 03/11/18 06:38 Glucose (Fingerstick) 89 mg/dL (70-99) 111 mg/dL (70-99) 133 mg/dL (70-99) Hemoglobin 9.6 g/dL (12.0-15.5) Hematocrit 29.0 % (36.0-47.0) Mean Corpuscular Hemoglobin Concent 33 g/dL (31-37) Prothrombin Time 15.9 SEC (11.7-14.0) Prothromb Time International Ratio 1.3 (0.8-1.1) Test 03/11/18 11:25 03/11/18 16:26 03/12/18 04:25 03/12/18 11:55 Glucose (Fingerstick) 121 mg/dL (70-99) 130 mg/dL (70-99) 69 mg/dL (70-99) Hemoglobin 8.3 g/dL (12.0-15.5) Hematocrit 24.3 % (36.0-47.0) Mean Corpuscular Hemoglobin Concent 34 g/dL (31-37) Prothrombin Time 21.6 SEC (11.7-14.0) Prothromb Time International Ratio 2.0 (0.8-1.1) Laboratory Tests Test 03/11/18 16:26 03/12/18 04:25 03/12/18 11:55 Glucose (Fingerstick) 130 mg/dL (70-99) 69 mg/dL (70-99) Hemoglobin 8.3 g/dL (12.0-15.5) Hematocrit 24.3 % (36.0-47.0) Mean Corpuscular Hemoglobin Concent 34 g/dL (31-37) Prothrombin Time 21.6 SEC (11.7-14.0) Prothromb Time International Ratio 2.0 (0.8-1.1) Assessment Assessment POD# [2], S/P [right total knee] Plan Plan of Care cont pt rehab on d/c coumadin KUSHAL BONILLA MD Mar 12, 2018 14:28
[2018-03-12] MEDS: PROCHLORPERAZINE 10 MG/2 ML VIAL. IV PRN ×2 (14:34→19:16)
[2018-03-12] MEDS ORDERED: WARFARIN 3 MG TABLET. PO ONE (16:00)
[2018-03-12] MEDS: PANTOPRAZOLE 40 MG TABLET.DR. PO SCH (16:29)
[2018-03-12 18:41] VITALS: BP 142/68
[2018-03-12] MEDS: CITALOPRAM 20 MG TABLET. PO SCH (21:00)
[2018-03-12] MEDS: VERAPAMIL SR 120 MG TABLET.ER. PO SCH (21:00)
[2018-03-12] MEDS: SIMVASTATIN 40 MG TABLET. PO SCH (21:00)
[2018-03-13] MEDS: KETOROLAC TROMETHAMINE 10 MG TABLET PO SCH ×3 (06:00→12:00)
[2018-03-13 06:33] VITALS: BP 121/58
[2018-03-13 07:40] LABS: HEMATOCRIT 26.7 % (36.0-47.0)
[2018-03-13 07:55] LABS: PROTHROMBIN TIME PATIENT 23.7 SEC (11.7-14.0)
[2018-03-13] MEDS: MULTIVITAMIN with MINERAL TABLET. PO SCH (07:59)
[2018-03-13] MEDS: FERROUS SULFATE 325 MG TABLET. PO SCH ×2 (07:59→16:42)
[2018-03-13] MEDS: POTASSIUM CHLORIDE 10 MEQ TABLET.ER. PO SCH (07:59)
[2018-03-13] MEDS: PIOGLITAZONE 15 MG TABLET. PO SCH (07:59)
[2018-03-13 08:00] VITALS: BP 107/54
[2018-03-13] MEDS: CARVEDILOL 12.5 MG TABLET. PO SCH ×2 (08:00→16:44)
[2018-03-13] MEDS: oxyCODONE/APAP 7.5/325 1 TAB TABLET PO PRN ×3 (08:00→16:53)
[2018-03-13] MEDS: LOSARTAN POTASSIUM 50 MG TABLET. PO SCH (08:04)
[2018-03-13] MEDS: SENNOSIDES/DOCUSATE 8.6/50MG TABLET. PO SCH (08:05)
[2018-03-13] MEDS: BUDESONIDE 0.5 MG/2 ML NEBU. NEB SCH (08:18)
[2018-03-13] MEDS: ALBUTEROL SULFATE 2.5 MG/3 ML NEBU. NEB SCH ×3 (08:18→15:37)
[2018-03-13] MEDS: metFORMIN 500 MG TABLET PO SCH ×2 (12:13→16:42)
[2018-03-13 12:18] VITALS: BP 117/62
[2018-03-13] MEDS ORDERED: WARFARIN 2 MG TABLET. PO ONE (14:30)
--- NOTE | 2018-03-13 16:08 | DISCH ---
DISCHARGE DISCHARGE INFORMATION: DISCHARGE DATE: Mar 13, 2018 FINAL DIAGNOSIS Degenerative joint disease right knee status post total knee replacement Left ring trigger finger status post release Left long finger ganglion cyst status post excision CODE STATUS: Code Status: Full CORRECTION: SNF STAY <30 DAYS: Yes HOSPICE: HOSPICE: No LTAC: ADMIT TO LTAC: No POST DISCHARGE ORDERS: WEIGHT BEARING STATUS: As tolerated DIET AFTER DISCHARGE: ADA WOUND/INCISION CARE: Ice to area for comfort, Change dressing (daily dressing changes to right knee, band aid to left Palm) TREATMENT/EQUIPMENT ORDERS: ADAPTIVE EQUIPMENT NEEDED: Front wheeled walker Physical Therapy For: Evalulation/Treatment Occupational Therapy For: Evaluation/Treatment DISCHARGE MEDICATIONS: Home Meds Reported Medications Albuterol Sulfate (PROAIR HFA INHALER) 8.5 Gm Hfa.aer.ad, 2 PUFF INH PRN Q6HRS PRN for SHORTNESS OF BREATH, INHALER 0 Refills 03/02/18 Meclizine Hcl (MECLIZINE HCL) 25 Mg Tablet, 25 MG PO, TAB 03/02/18 Alprazolam (ALPRAZOLAM) 0.5 Mg Tablet, 0.5 MG PO PRN Q6HRS PRN for ANXIETY / AGITATION, TAB 0 Refills 03/02/18 Pantoprazole Sodium (PROTONIX) 20 Mg Tablet.dr, 40 MG PO DAILY16, TAB 03/02/18 Budesonide/Formoterol Fumarate (SYMBICORT 160-4.5 MCG INHALER) 10.2 Gm Hfa.aer.ad, 2 PUFF IH BID, INHALER 03/02/18 Verapamil Hcl (VERAPAMIL ER) 240 Mg Cap24h.pel, 240 MG PO HS, CAP.SR 03/02/18 Escitalopram Oxalate (ESCITALOPRAM OXALATE) 10 Mg Tablet, 30 MG PO HS for ANTI- DEPRESSANT, #30 TAB 0 Refills 03/02/18 Simvastatin (SIMVASTATIN) 40 Mg Tablet, 40 MG PO HS for FOR CHOLESTEROL, #30 TAB 0 Refills 03/02/18 Metformin Hcl (METFORMIN HCL ER) 750 Mg Tab.er.24h, 750 MG PO BIDACLD for ANTI- DIABETIC, TAB 0 Refills 03/02/18 Naproxen Sodium (ALEVE) 220 Mg Tablet, 220 MG PO PRN Q8HRS PRN for PAIN, TAB 03/02/18 Potassium Gluconate (POTASSIUM GLUCONATE) 500 Mg Tablet, 550 MG PO DAILY, TAB 03/02/18 Pioglitazone Hcl (ACTOS) 30 Mg Tablet, 30 MG PO DAILY, TAB 03/02/18 Irbesartan (IRBESARTAN) 300 Mg Tablet, 150 MG PO BID, TAB 03/02/18 Carvedilol (CARVEDILOL) 25 Mg Tablet, 25 MG PO BIDWMEALS, TAB 03/02/18 Acetaminophen With Codeine (TYLENOL WITH CODEINE #3 TABLET) 1 Each Tablet, 1 TAB PO PRN Q6HRS PRN for PAIN, TAB 03/02/18 Hydrocodone Bit/Acetaminophen (HYDROCODONE-APAP 10-325 ) 1 Each Tablet, 1 TAB PO PRN Q6HRS PRN for PAIN, TAB 0 Refills 03/02/18 KUSHAL BONILLA MD Mar 13, 2018 16:08
[2018-03-13] MEDS ORDERED: OXYC-327 PO (16:27)
[2018-03-13] MEDS: PANTOPRAZOLE 40 MG TABLET.DR. PO SCH (16:44)
[2018-03-13 16:46] VITALS: BP 119/63
== END 2018-03-13 19:09 | DRG 470 ==
LOC: OPSVCIP 10:22 → 4 SOUTHEST 20:35
PROVIDERS: ADMIT Orthopaedic Surgery; ATTEND Orthopaedic Surgery
PROC: 0SRC069 Replacement of Right Knee Joint with Oxidized Zirconium on Polyethylene Synthetic Substitute, Cemented, Open Approach (ICD-10-PCS; principal; 2018-03-10 13:00)
PROC: 0LN80ZZ Release Left Hand Tendon, Open Approach (ICD-10-PCS; 2018-03-10 13:00)
PROC: 0LB80ZZ Excision of Left Hand Tendon, Open Approach (ICD-10-PCS; 2018-03-10 13:00)
DX: M17.11 Unilateral primary osteoarthritis, right knee (principal); M65.30 Trigger finger, unspecified finger; D86.9 Sarcoidosis, unspecified; E11.9 Type 2 diabetes mellitus without complications; Z96.651 Presence of right artificial knee joint; E78.00 Pure hypercholesterolemia, unspecified; M67.40 Ganglion, unspecified site; I10 Essential (primary) hypertension; Z79.899 Other long term (current) drug therapy; Z88.2 Allergy status to sulfonamides
CPT/HCPCS: 36415; 73560; 82962; 85014; 85018; 85610; 85730; 86850; 86900; 86901; 94640; 94760; A7015; C1713; J0171; J0690; J0780; J1100; J1200; J1885; J2250; J2270; J2405; J2704; J2710; J2795; J3010; J3490; J7030; J7120; J7613; J7626; Q0163; 97110; 97116; 97150; 97530; 97535; C1769

== ENCOUNTER → 2018-06-17 | Outpatient (CLI) | payer BC ==
[~2018-06-17] MED LIST changes: +ALBU2.5V8 INH; -HYDR-2766 PO; +HYDR-2769 PO; +HYDR-3164 PO; -HYDR-971 PO; -HYDROcodone/APAP 7.5/325MG 1 TAB TABLET PO PRN; -HYDROmorphone 2 MG/ML VIAL IV PRN; -IV RINGERS,LACTATED 1000ML 1,000 ML IV SCH; -LIDOCAINE 1% PF 2 ML VIAL. ID PRN; -MELOXICAM 7.5 MG TABLET PO PRN; -ONDANSETRON PF 4 MG/2 ML VIAL. IV PRN; +OXYC1TAB19 PO; -PROAIR HFA8.5 GM INH; -PROCHLORPERAZINE 10 MG/2 ML VIAL. IV PRN; -fentaNYL PF VIAL 100 MCG/2 ML VIAL IV PRN
--- NOTE | 2018-06-17 11:52 | KCIC ---
EXAM: Lumbar spine MRI without contrast. HISTORY: Lumbar radiculopathy. TECHNIQUE: Multiplanar, multisequence magnetic resonance imaging of the lumbar spine was performed without contrast. COMPARISON: Radiographs dated 09/27/2016. FINDINGS: There is mild lumbar scoliosis. There is no listhesis. The vertebral bodies are normal in height. There is degenerative endplate remodeling at multiple levels. There are multiple osseous hemangiomas. This is superimposed on diffusely heterogeneous marrow signal intensity due to fatty marrow placement. No suspicious osseous lesion is seen. The conus terminates at L1. At T11-T12, there is a suspected right foraminal to extra foraminal disc protrusion with 3 mm superior extrusion which abuts the exiting right T11 nerve root and contributes to mild to moderate right foraminal stenosis. At T12-L1, there is no stenosis. At L1-L2, there is no stenosis. At L2-L3, there is a shallow broad-based right paracentral to foraminal disc protrusion and annular tear and a left extra foraminal disc protrusion and annular tear. These are superimposed on a disc bulge and endplate osteophytosis. There is minimal facet arthropathy. There is mild left foraminal stenosis with abutment of the exiting left L2 nerve root. There is minimal central canal stenosis. At L3-L4, there is a left paracentral to extra foraminal disc protrusion and annular tear superimposed on a disc bulge and endplate osteophytosis. There is mild left greater than right facet arthropathy. There is mild bilateral foraminal stenosis with abutment of the exiting left L3 nerve root. There is minimal central canal stenosis. At L4-L5, there is a right paracentral disc protrusion and annular tear superimposed on a disc bulge and endplate osteophytosis. There is moderate right facet arthropathy. There is epidural lipomatosis. There is mild central canal stenosis. At L5-S1, there is a shallow right paracentral disc protrusion and annular tear superimposed on a disc bulge. There is epidural lipomatosis contributing to moderate narrowing of the thecal sac. There is an incidental fatty filum. IMPRESSION: 1. Multilevel degenerative change throughout the thoracic and lumbar spine, described in detail above. This results in suspected moderate right foraminal stenosis and abutment of the exiting right T11 nerve root at T11-T12, minimal left foraminal and central canal stenosis at L2-L3, mild bilateral foraminal and minimal central canal stenosis at L3-L4, and mild central canal stenosis at L4-L5. 2. Mild scoliosis. 3. Slight epidural lipomatosis at the lower lumbar levels and lumbosacral junction, contributing to narrowing of the thecal sac. Electronically signed by: Anu Brewer MD (06/17/2018 11:49 AM) [facility]
== END | disposition home or self-care (01) ==
LOC: KCIC MRI 10:28
PROVIDERS: ATTEND Orthopaedic Surgery
DX: M47.896 Other spondylosis, lumbar region (principal); M48.061 Spinal stenosis, lumbar region without neurogenic claudication; E88.2 Lipomatosis, not elsewhere classified; M47.894 Other spondylosis, thoracic region; M48.04 Spinal stenosis, thoracic region; M51.27 Other intervertebral disc displacement, lumbosacral region; M51.26 Other intervertebral disc displacement, lumbar region; M48.07 Spinal stenosis, lumbosacral region; M12.88 Other specific arthropathies, not elsewhere classified, other specified site; M41.86 Other forms of scoliosis, lumbar region; D18.09 Hemangioma of other sites
CPT/HCPCS: 72148

== ENCOUNTER 2018-09-27 08:23 | Emergency (ER) | payer BC ==
[~2018-09-27] VITALS: Ht 182.9 cm; Wt 79.8 kg
[2018-09-27 08:29] VITALS: BP 133/80
--- NOTE | 2018-09-27 08:52 | PHYS DOC ---
Past Medical History Past Medical History: CAD, Depression, Diabetes-Type II, Hypertension, Stroke Past Surgical History: Knee Replacement, Other Additional Past Surgical Histo: cyst removal L hand Alcohol Use: None Drug Use: None Adult General Chief Complaint Chief Complaint: MECHANICAL FALL HPI HPI Patient is a 63 year old right-handed female who presents with complaining of a fall and injury. Patient states she had a fall from her 4 feet high bed one week ago while she was at sleep and having a bad nightmares. Patient complaining of pain in left hand with edema that did not get better for the last one. Patient also complaining of pain and edema right ankle. Patient denies focal vahe rodeficit and other injuries and loss of consciousness. Patient rated her pain 5/10 and doesn't want to have pain medication at this time. Review of Systems Review of Systems Constitutional: Denies fever or chills [] Eyes: Denies change in visual acuity, redness, or eye pain [] HENT: Denies nasal congestion or sore throat [] Respiratory: Denies cough or shortness of breath [] Cardiovascular: No additional information not addressed in HPI [] GI: Denies abdominal pain, nausea, vomiting, bloody stools or diarrhea [] : Denies dysuria or hematuria [] Musculoskeletal: Denies back pain , reports joint pain [] Integument: Denies rash or skin lesions [] Neurologic: Denies headache, focal weakness or sensory changes [] Endocrine: Denies polyuria or polydipsia [] All other systems were reviewed and found to be within normal limits, except as documented in this note. Allergies Allergies Allergies Coded Allergies Type Severity Reaction Last Updated Verified Sulfa (Sulfonamide Antibiotics) Allergy Intermediate swelling hives 03/10/18 Yes Physical Exam Physical Exam Constitutional: Well developed, well nourished, mild distress, non-toxic appear ance. [] HENT: Normocephalic, atraumatic. Eyes: PERRLA, EOMI, conjunctiva normal, no discharge. [] Neck: Normal range of motion, no tenderness, supple, no stridor. [] Cardiovascular:Heart rate regular rhythm, no murmur [] Lungs & Thorax: Bilateral breath sounds clear to auscultation [] Back: No tenderness, no CVA tenderness. [] Extremities: Left hand with moderate edema and tenderness in the fourth and fifth metacarpal area, right ankle with mild edema and tenderness in lateral malleolus without deformity, no cyanosis, no clubbing, ROM intact, no edema. [] Neurologic: Alert and oriented X 3, normal motor function, normal sensory function, no focal deficits noted. [] Psychologic: Affect normal, judgement normal, mood normal. [] Current Patient Data Vital Signs Vital Signs Date Time Temp Pulse Resp B/P (MAP) Pulse Ox O2 Delivery O2 Flow Rate FiO2 09/27/18 08:29 98.0 67 14 133/80 (97) 97 Room Air 98.0 EKG EKG [] Radiology/Procedures Radiology/Procedures [address] [id number] IMAGING REPORT Signed PATIENT: PANKAJ JONES ACCOUNT: [id number] : 1955 LOCATION: ER AGE: 63 SEX: F EXAM STATUS: REG ER ORD. PHYSICIAN: AMELIE MAI MD REASON: fall PROCEDURE: ANKLE RIGHT 3V Indications: Fall and pain Three-view left hand study: There is a nondisplaced fracture of the distal shaft and metaphysis of the fourth metacarpal bone. No angulation is seen. No dislocation is seen. No lytic process evident. IMPRESSION: Posttraumatic fracture of the fourth metacarpal bone. Three-view right ankle study: Mild lateral soft tissue swelling is seen. No acute fracture or dislocation or lytic process is seen. The mortise ankle joint is intact. IMPRESSION: No acute fracture. Electronically signed by: Brinda Pak MD (09/27/2018 9:18 AM) [facility] DICTATED and SIGNED BY: BRINDA PAK MD DATE: 09/27/[address] [id number] IMAGING REPORT Signed PATIENT: PANKAJ JONES ACCOUNT: [id number] : 1955 LOCATION: ER AGE: 63 SEX: F EXAM STATUS: REG ER ORD. PHYSICIAN: AMELIE MAI MD REASON: fall PROCEDURE: HAND LEFT 3V Indications: Fall and pain Three-view left hand study: There is a nondisplaced fracture of the distal shaft and metaphysis of the fourth metacarpal bone. No angulation is seen. No dislocation is seen. No lytic process evident. IMPRESSION: Posttraumatic fracture of the fourth metacarpal bone. Three-view right ankle study: Mild lateral soft tissue swelling is seen. No acute fracture or dislocation or lytic process is seen. The mortise ankle joint is intact. IMPRESSION: No acute fracture. Electronically signed by: Brinda Pak MD (09/27/2018 9:18 AM) [facility] DICTATED and SIGNED BY: BRINDA PAK MD DATE: 09/27/18917 Course & Med Decision Making Course & Med Decision Making Pertinent Imaging studies reviewed. (See chart for details) Evaluation of patient in ER showed 63-year-old female patient with a fall one week ago and injury to left right ankle. Patient had moderate edema and tenderness of extremities with unremarkable x-ray. Plan to apply Jameel wrap and gel cast and instruction to apply ice on her hand and ankle. Dragon Disclaimer Dragon Disclaimer This electronic medical record was generated, in whole or in part, using a voice recognition dictation system. Departure Departure Impression: Primary Impression: Contusion of left hand Additional Impressions: Right ankle sprain Fall at home Disposition: 01 HOME, SELF-CARE (at 0 [phone]) Condition: STABLE Referrals: MAGY SHAHID MD (PCP) Patient Instructions: Ankle Sprain, Hand Contusion Additional Instructions: Apply ice on the affected area Follow-up with your primary care physician in 3-5 days Return to ER if not getting better Scripts Tramadol Hcl (ULTRAM) 50 Mg Tablet 50 MG PO Q6HRS PRN for PAIN, #14 TAB 0 Refills Prov: AMELIE MAI MD 09/27/18 Problem Qualifiers Primary Impression: Contusion of left hand Encounter type: initial encounter Qualified Codes: S60.222A - Contusion of left hand, initial encounter Additional Impressions: Right ankle sprain Encounter type: subsequent encounter Involved ligament of ankle: unspecified ligament Qualified Codes: S93.401D - Sprain of unspecified ligament of right ankle, subsequent encounter Fall at home Encounter type: subsequent encounter Qualified Codes: W19.XXXD - Unspecified fall, subsequent encounter; Y92.009 - Unspecified place in unspecified non-institutional (private) residence as the place of occurrence of the external cause AMELIE MAI MD September 27, 2018 08:52
--- NOTE | 2018-09-27 09:21 | RAD ---
Indications: Fall and pain Three-view left hand study: There is a nondisplaced fracture of the distal shaft and metaphysis of the fourth metacarpal bone. No angulation is seen. No dislocation is seen. No lytic process evident. IMPRESSION: Posttraumatic fracture of the fourth metacarpal bone. Three-view right ankle study: Mild lateral soft tissue swelling is seen. No acute fracture or dislocation or lytic process is seen. The mortise ankle joint is intact. IMPRESSION: No acute fracture. Electronically signed by: Sanket Pak MD (09/27/2018 9:18 AM) [facility]
[2018-09-27] MEDS ORDERED: TRAM-48 PO (09:41)
== END 2018-09-27 09:47 | disposition home or self-care (01) ==
LOC: ER 08:23
DX: S93.401A Sprain of unspecified ligament of right ankle, initial encounter (principal); S60.222A Contusion of left hand, initial encounter; E11.9 Type 2 diabetes mellitus without complications; I10 Essential (primary) hypertension; I25.10 Atherosclerotic heart disease of native coronary artery without angina pectoris; Z86.73 Personal history of transient ischemic attack (TIA), and cerebral infarction without residual deficits; Z88.2 Allergy status to sulfonamides; W18.39XA Other fall on same level, initial encounter; Y93.89 Activity, other specified; Y92.098 Other place in other non-institutional residence as the place of occurrence of the external cause; Y99.8 Other external cause status
CPT/HCPCS: 73130; 73610; 99284; L4350

== ENCOUNTER 2018-10-19 05:48 | Emergency (ER) | payer BC ==
[~2018-10-19] VITALS: Ht 182.9 cm; Wt 79.8 kg
[~2018-10-19 05:48] MED LIST changes: +TRAM-48 PO
[2018-10-19 05:56] VITALS: BP 196/94
--- NOTE | 2018-10-19 06:16 | PHYS DOC ---
Past Medical History Past Medical History: CAD, Depression, Diabetes-Type II, Hypertension, Stroke Past Surgical History: Knee Replacement, Other Additional Past Surgical Histo: cyst removal L hand Alcohol Use: None Drug Use: None Adult General Chief Complaint Chief Complaint: MECHANICAL FALL HPI HPI Patient is a 63 year old female who presented to ER today for evaluation of headache, left-sided facial pain, left shoulder pain, knees pain after she fell out of her bed. Patient was able to walk but with pain. She denies any chest pain, no back pain. Patient denies any pelvic or hip pain. Review of Systems Review of Systems Constitutional: Denies fever or chills [] Eyes: Denies change in visual acuity, redness, or eye pain [] HENT: Denies nasal congestion or sore throat [] Respiratory: Denies cough or shortness of breath [] Cardiovascular: No additional information not addressed in HPI [] GI: Denies abdominal pain, nausea, vomiting, bloody stools or diarrhea [] : Denies dysuria or hematuria [] Musculoskeletal: Denies back pain, positive for knees pain, left shoulder pain and neck pain. Integument: Denies rash or skin lesions [] Neurologic: Denies focal weakness or sensory changes. Positive for headache Endocrine: Denies polyuria or polydipsia [] All other systems were reviewed and found to be within normal limits, except as documented in this note. Allergies Allergies Allergies Coded Allergies Type Severity Reaction Last Updated Verified Sulfa (Sulfonamide Antibiotics) Allergy Intermediate swelling hives 03/10/18 Yes Physical Exam Physical Exam Constitutional: Well developed, well nourished, no acute distress, non-toxic appearance. [] HENT: Normocephalic, bilateral external ears normal, oropharynx moist, no oral exudates, nose normal. Left side facial contusion and tender to palpation, left side temporal area tender to palpation, no deformity. Eyes: PERRLA, EOMI, conjunctiva normal, no discharge. [] Neck: Normal range of motion, no tenderness, supple, no stridor. [] Cardiovascular:Heart rate regular rhythm, no murmur [] Lungs & Thorax: Bilateral breath sounds clear to auscultation [] Abdomen: Bowel sounds normal, soft, no tenderness, no masses, no pulsatile masses. [] Skin: Warm, dry, no erythema, no rash. [] Back: No tenderness, no CVA tenderness. [] Extremities: Left shoulder with contusion, tender to palpation, there is full range of motion. Left knee with contusion and tender to palpation, knee joint is intact with full range of motion. No pelvic or hip tender to palpation. Neurologic: Alert and oriented X 3, normal motor function, normal sensory function, no focal deficits noted. [] Psychologic: Affect normal, judgement normal, mood normal. [] Current Patient Data Vital Signs Vital Signs Date Time Temp Pulse Resp B/P (MAP) Pulse Ox O2 Delivery O2 Flow Rate FiO2 10/19/18 05:56 98.4 71 16 196/94 (128) 96 Room Air 98.4 EKG EKG [] Radiology/Procedures Radiology/Procedures CT HEAD, C-SPINE, FACE: NO ACUTE PROBLEM XRAY OF KNEES, LEFT SHOULDER : NO ACUTE PROBLEM.[] Course & Med Decision Making Course & Med Decision Making Pertinent Labs and Imaging studies reviewed. (See chart for details) [] Dragon Disclaimer Dragon Disclaimer This electronic medical record was generated, in whole or in part, using a voice recognition dictation system. Departure Departure Impression: Primary Impression: Facial contusion Additional Impressions: Contusion of left shoulder Knee contusion Disposition: HOME, SELF-CARE Condition: STABLE Referrals: MAGY SHAHID MD (PCP) FOLLOW UP WITH YOUR DOCTOR NEXT WEEK Patient Instructions: Contusion, Head Injury, Adult Problem Qualifiers ANGELLA FUNEZ DO Oct 19, 2018 06:16
--- NOTE | 2018-10-19 07:19 | RAD ---
DATE OF SERVICE: 10/19/2018 6:44 AM EXAM: CT scan of the brain without intravenous contrast CT scan of the face without intravenous contrast CLINICAL HISTORY: Status post head and facial injury. TECHNIQUE: Axial CT images were obtained through the brain without the use of intravenous contrast. Axial CT images were obtained through the face without the use of intravenous contrast. Multiplanar 2D reformatted images were also reviewed. Dose lowering technique(s) such as automated exposure control, iterative reconstruction, and mA and/or KV adjustment for patient size was utilized for this examination. CT scan of the cervical spine was obtained concurrently and is reported separately. COMPARISON: ; MRI of the brain dated January 15, 2009 FINDINGS: There is no non-contrast CT evidence for acute/subacute cortical ischemia, intracranial hemorrhage, mass lesion, or abnormal extra-axial fluid collection. There is a region of encephalomalacia involving the right cerebellar hemisphere underlying a right occipital craniectomy/cranioplasty site. There are nonspecific cerebral white matter hypodensities which most likely represent chronic changes of small vessel ischemic disease. The ventricular system is normal in size and configuration. There is no midline shift or other herniation. No acute calvarial fracture is identified. Left malar region soft tissue swelling is present. No facial bone fracture is identified. The temporomandibular joints are normally located bilaterally. The orbits and mastoid regions are unremarkable in appearance. There is a 1 cm retention cyst versus polyp in the left maxillary sinus. IMPRESSION: 1. Grossly unchanged appearance of the brain without noncontrast CT evidence for acute intracranial pathology. 2. No facial bone fracture is identified. Electronically signed by: Trung Lozano MD (10/19/2018 7:16 AM) [facility]
--- NOTE | 2018-10-19 07:23 | RAD ---
DATE OF SERVICE: 10/19/2018 6:18 AM EXAM: CT scan of the cervical spine without intravenous or myelographic contrast. CLINICAL HISTORY: Status post injury with pain. TECHNIQUE: Axial CT images were obtained through the cervical spine without the use of intravenous or myelographic contrast. Multiplanar 2D reformatted images were also reviewed. Dose lowering technique(s) such as automated exposure control, iterative reconstruction, and mA and/or KV adjustment for patient size was utilized for this examination. CT scans of the brain and face were obtained concurrently and are reported separately. COMPARISON: None available. FINDINGS: No fracture or spondylolisthesis involving the cervical spine is identified. No gross paravertebral soft tissue abnormality is appreciated. Multilevel degenerative changes are present with multilevel mild narrowing of the central spinal canal. There are multiple cysts and/or hypodense nodules in the thyroid gland, largest in the right lobe measuring 11 mm. Sonographic characterization can be considered. A subcentimeter calcified pulmonary parenchymal granuloma is noted in the right upper lobe. IMPRESSION: 1. Multilevel degenerative changes. 2. Cysts and/or nodules in the thyroid gland. Electronically signed by: Trung Lozano MD (10/19/2018 7:20 AM) [facility]
--- NOTE | 2018-10-19 07:47 | RAD ---
Bilateral knees, 6 views, 10/19/2018: HISTORY: Fall, injury A right total knee prosthesis is in place in satisfactory position. There is an irregular sclerotic patch in the proximal left tibia. This was also present on the old study from 09/27/2016 and most likely represents old bone infarct. No recent fracture or dislocation is identified. No significant joint effusion is seen. IMPRESSION: 1. Right total knee prosthesis. 2. 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 3. No acute bony abnormality is detected. Electronically signed by: Meek Hernandez MD (10/19/2018 7:44 AM) [facility]
== END 2018-10-19 08:50 | disposition home or self-care (01) ==
LOC: ER 05:48
DX: S00.83XA Contusion of other part of head, initial encounter (principal); S80.02XA Contusion of left knee, initial encounter; S80.01XA Contusion of right knee, initial encounter; S40.012A Contusion of left shoulder, initial encounter; M54.2 Cervicalgia; I25.10 Atherosclerotic heart disease of native coronary artery without angina pectoris; E11.9 Type 2 diabetes mellitus without complications; I10 Essential (primary) hypertension; Z86.73 Personal history of transient ischemic attack (TIA), and cerebral infarction without residual deficits; Z88.2 Allergy status to sulfonamides; W06.XXXA Fall from bed, initial encounter; Y93.89 Activity, other specified; Y92.89 Other specified places as the place of occurrence of the external cause; Y99.8 Other external cause status
CPT/HCPCS: 70450; 70486; 72125; 73030; 73562; 99284-25